=== PATIENT | male | born 1985 | race Two or more races ===

== ENCOUNTER 2018-02-16 14:31 | Emergency (ER) | payer MEDICAID ==
[2018-02-16 16:49] LABS: URINE BLOOD (Dip) POC Negative (NEGATIVE); URINE GLUCOSE (Dip) POC Negative (NEGATIVE); URINE KETONES (Dip) POC Negative (NEGATIVE); URINE LEUKOCYTE EST (Dip) POC Negative (NEGATIVE); URINE NITRITE (Dip) POC Negative (NEGATIVE); URINE TOTAL PROTEIN POC Trace (NEGATIVE)
== END 2018-02-16 18:40 | disposition home or self-care (01) ==
LOC: FTE 14:31
DX: R10.31 Right lower quadrant pain (principal)
CPT/HCPCS: 76536; 81003; 99284-25

== ENCOUNTER 2018-07-23 10:58 | Emergency (ER) | payer SELFPAY, MEDICAID ==
[2018-07-23] MEDS: ACETAMINOPHEN 500 MG TAB PO (13:01)
== END 2018-07-23 13:56 | disposition home or self-care (01) ==
LOC: FTE 10:58
DX: F41.9 Anxiety disorder, unspecified (principal)
CPT/HCPCS: 93005; 99283-25